=== PATIENT | female | born 1935 | race Caucasian/White ===

== ENCOUNTER 2022-09-26 10:58 | Outpatient (CLI) | payer MEDICARE, BC | END 2022-09-26 10:59 | disposition home or self-care (01) | LOC: BICMAMMO 10:58 | PROVIDERS: ATTEND Physician Assistant | DX: Z12.31 Encounter for screening mammogram for malignant neoplasm of breast (principal); Z80.3 Family history of malignant neoplasm of breast; Z85.3 Personal history of malignant neoplasm of breast; Z90.11 Acquired absence of right breast and nipple | CPT/HCPCS: 77063; 77067 ==

== ENCOUNTER 2023-10-11 08:22 | Outpatient (CLI) | payer MEDICARE | END 2023-10-11 08:23 | disposition home or self-care (01) | LOC: BICULT 08:22 | PROVIDERS: ATTEND Family Medicine | DX: R10.30 Lower abdominal pain, unspecified (principal); Z90.710 Acquired absence of both cervix and uterus | CPT/HCPCS: 76700; 76856 ==